=== PATIENT | male | born 1990 | race Two or more races ===

== ENCOUNTER 2018-04-19 07:04 | Emergency (ER) | payer MEDICAID ==
[~2018-04-19] VITALS: Ht 167.6 cm; Wt 69.9 kg
[2018-04-19 07:13] VITALS: BP 133/91
[2018-04-19] MEDS ORDERED: IBUPROFEN 400 MG TABLET ONE (07:25)
[2018-04-19] MEDS ORDERED: IBUPROFEN 400 MG TABLET PO ONE (07:30)
--- NOTE | 2018-04-19 08:29 | NUR ---
SHOULDER AND KNEE IMMOBILIZER DONE BY KINDERGARTNER.
== END 2018-04-19 08:38 | disposition home or self-care (01) ==
LOC: ER 07:10
DX: S40.012A Contusion of left shoulder, initial encounter (principal); S50.02XA Contusion of left elbow, initial encounter; S80.01XA Contusion of right knee, initial encounter; W10.8XXA Fall (on) (from) other stairs and steps, initial encounter; Y93.89 Activity, other specified; Y92.89 Other specified places as the place of occurrence of the external cause; Y99.8 Other external cause status
CPT/HCPCS: 73030-TC; 73080-TC; 73564-TC

== ENCOUNTER 2018-06-06 02:49 | Emergency (ER) | payer MEDICAID ==
[~2018-06-06] VITALS: Ht 167.6 cm; Wt 69.9 kg
[2018-06-06 03:16] VITALS: BP 117/81
[2018-06-06] MEDS ORDERED: KETOROLAC TROMETHAMINE INJ 60 MG/2 ML VIAL IM ONE ×2 (03:28→03:30)
[2018-06-06] MEDS ORDERED: CARISOPRODOL 350 MG TABLET ONE (03:28)
[2018-06-06] MEDS ORDERED: DEXAMETHASONE SOD PHOSPHATE 10 MG/ML VIAL ONE (03:28)
[2018-06-06] MEDS ORDERED: HYDROMORPHONE 1 MG/1 ML DISP.SYRIN ONE (03:29)
[2018-06-06] MEDS ORDERED: DEXAMETHASONE SOD PHOSPHATE 4 MG/ML VIAL IM ONE (03:30)
[2018-06-06] MEDS ORDERED: HYDROMORPHONE 1 MG/1 ML DISP.SYRIN IM ONE (03:30)
[2018-06-06] MEDS ORDERED: CARISOPRODOL 350 MG TABLET PO ONE (03:30)
== END 2018-06-06 04:37 | disposition home or self-care (01) ==
LOC: ER 02:53
DX: M62.830 Muscle spasm of back (principal)
CPT/HCPCS: 96372 ×3; 99283; J1100; J1170; J1885

== ENCOUNTER 2019-08-05 23:21 | Emergency (ER) | payer BC, MEDICAID ==
[~2019-08-05] VITALS: Ht 162.6 cm; Wt 69.9 kg
[2019-08-05 23:30] VITALS: BP 107/80
--- NOTE | 2019-08-05 23:35 | NUR ---
PT CAME TO THE ED C/O LOWER BACK X 2 DAYS RADIATING TO THE L LOWER SIDE. PT AAOX4, VSS, RESPIRATIONS EVEN AND UNLABORED ON RA W/ NAD NOTED. PT CONNECTED TO THE MONITOR AND POX.
--- NOTE | 2019-08-05 23:36 | NUR ---
DR KEENE AT BEDSIDE
[2019-08-05] MEDS ORDERED: LORAZEPAM INJ 2 MG/ML VIAL ONE (23:48)
[2019-08-05] MEDS ORDERED: KETOROLAC TROMETHAMINE INJ 60 MG/2 ML VIAL IM ONE (23:48)
[2019-08-06] MEDS ORDERED: KETOROLAC TROMETHAMINE INJ 60 MG/2 ML VIAL IM ONE
[2019-08-06] MEDS ORDERED: LORAZEPAM INJ 2 MG/ML VIAL IM ONE
--- NOTE | 2019-08-06 00:39 | NUR ---
Patient discharged to home in stable condition. Written and verbal after care instructions given. Patient verbalizes understanding of instruction.pt. ambulatory with a steady gait
== END 2019-08-06 00:40 | disposition home or self-care (01) ==
LOC: ER 23:21
DX: S39.012A Strain of muscle, fascia and tendon of lower back, initial encounter (principal); X50.0XXA Overexertion from strenuous movement or load, initial encounter; Y93.89 Activity, other specified; Y92.89 Other specified places as the place of occurrence of the external cause; Y99.8 Other external cause status
CPT/HCPCS: 96372 ×2; 99284; J1885; J2060

== ENCOUNTER 2019-08-21 12:29 | Emergency (ER) | payer BC, MEDICAID ==
[~2019-08-21] VITALS: Ht 167.6 cm; Wt 69.9 kg
[2019-08-21 12:36] VITALS: BP 113/74
--- NOTE | 2019-08-21 13:05 | NUR ---
PT LEFT BEFORE BEING SEEN BY ER PROVIDER.
== END 2019-08-21 13:05 | disposition left against medical advice (07) ==
LOC: ER 12:33
DX: Z53.21 Procedure and treatment not carried out due to patient leaving prior to being seen by health care provider (principal); M54.5 Low back pain